=== PATIENT | female | born 1935 | race Caucasian/White ===

== ENCOUNTER 2019-03-09 17:21 | Inpatient (IN) | payer MEDICARE, MEDICAID ==
[~2019-03-09] VITALS: Ht 165.1 cm; Wt 67.6 kg
[~2019-03-09 17:21] MED LIST: CALC600T38 OR; CLOP75TA28 OR; GABA300C OR; GLYB5TAB8 OR; ISOSPOW2 XX; METO25TA62 OR; RALO60TA10 OR; RANI150C3 OR; SIMV80TA62 OR; [UNRECOGNIZED DRUG - OTHER]; [UNRECOGNIZED DRUG - OTHER]; [UNRECOGNIZED DRUG - OTHER]; ecotrin
[2019-03-09 17:53] LABS: Basophils # (auto) 0 uL; Basophils % (auto) 0.2 % (0.0-2.0); Eosinophils # (auto) 0 uL; Eosinophils % (auto) 0.1 % (0.0-7.0); Hematocrit 33.9 % (36.0-46.0); Hemoglobin 10.9 g/dL (12.2-16.2); Lymphocytes # (auto) 0.8 uL; Lymphocytes % (auto) 6.2 % (10.0-50.0); Mean Corpuscular Hemoglobin 28.5 pg (28.0-32.0); Mean Corpuscular Hgb Conc. 32.3 g/dL (32.0-36.0); Mean Corpuscular Volume 88.3 fL (80.0-100.0); Monocytes # (auto) 0.9 uL; Monocytes % (auto) 7.1 % (0.0-12.0); Neutrophils # (auto) 10.5 uL; Neutrophils % (auto) 86.4 % (37.0-80.0); Platelet Count (auto) 239 10^3/uL (140-450); Red Blood Cells 3.84 10^6/uL (4.0-5.20); Red Cell Distribution Width 14.7 % (11.8-14.3); White Blood Cell 12.2 10^3/uL (4.4-10.8)
[2019-03-09 18:14] LABS: Albumin 2.9 g/dL (3.4-5.0); Anion Gap 8 (5-15); Blood Urea Nitrogen 12 mg/dL (7-18); Calcium 8.4 mg/dL (8.5-10.1); Carbon Dioxide 27 mmol/L (21-32); Chloride 100 mmol/L (98-107); Glucose 209 mg/dL (74-106); Potassium 4.3 mmol/L (3.5-5.1); Sodium 135 mmol/L (136-145)
[2019-03-09 18:20] LABS: Alanine Aminotransferase 15 U/L (13-56); Alkaline Phosphatase 60 U/L (45-117); Aspartate Aminotransferase 12 U/L (15-37); BUN/Creatinine Ratio 12.5; Bilirubin, Total 0.5 mg/dL (0.2-1.0); GFR African American 72 mL/min; GFR Non-African American 59 mL/min; Total Protein 6.8 g/dL (6.4-8.2)
[2019-03-09] MEDS ORDERED: SODIUM CHLORIDE 0.9% 500 ML IV ONE (18:31)
[2019-03-09] MEDS ORDERED: InsuLIN REG 1unit/0.01ml Soln (100units/ml) SC ONE (18:45)
[2019-03-09] MEDS ORDERED: MORPHINE SULF INJ 2 MG/ML SYRINGE 1ML IV ONE (18:45)
[2019-03-09] MEDS ORDERED: ONDANSETRON HCL 4 MG/2 ML VIAL ONE (20:05)
[2019-03-09] MEDS ORDERED: ONDANSETRON HCL 4 MG/2 ML VIAL IV ONE (20:15)
[2019-03-09 21:29] LABS: Urine Bacteria MOD /hpf (None Seen); Urine Blood TRACE /uL (Negative); Urine Mucus FEW (None Seen); Urine Specific Gravity 1.015 (1.001-1.035); Urine WBC 534 /hpf (0 - 5); Urine WBC Clumps PRESENT /hpf (None Seen)
[2019-03-09] MEDS ORDERED: NITROFURANTOIN (MONO) 100 mg CAP PO ONE (22:00)
[2019-03-09] MEDS ORDERED: ONDANSETRON HCL 4 MG/2 ML VIAL IV PRN (23:15)
[2019-03-09] MEDS ORDERED: IBUPROFEN 600 MG TAB PO PRN (23:15)
[2019-03-09] MEDS ORDERED: DEXTROSE (50%) 50ML SYRG IV PRN (23:15)
[2019-03-10 00:20] VITALS: BP 136/63
--- NOTE | 2019-03-10 00:25 | NUR ---
MS admit from ER RACHANANATHAN admitted to [facility]. Patient oriented to Lola Gibson RN primary RN, unit, room, bed, and unit policies regarding patient care and visiting hours. Patient weighed by bedscale and encouraged to call if they need something. All questions and concerns addressed, patient verbalized understanding. Note: Patient confused, oriented to self, reoriented to place, time and situation. Patient follows direction. Patient on 2L via NC with even and unlabored respirations, no s/s of SOB or distress. Hypoactive bowel sounds, abd soft upon palpation, non-tender. Patient wearing diaper, soiled with urine, removed diaper, cleansed patient. IV intact and patent. patient was able to turn independently in bed. Bed low locked position with side rails up x 3 and call light within reach, bed alarm on. Will continue to monitor.
[2019-03-10] MEDS: IBUPROFEN 100MG/5ML ORAL SUSP 100 MG/5 ML UD PO PRN ×2 (01:15→09:51)
[2019-03-10] MEDS ORDERED: VANCOMYCIN PER PHARMACY 0 MG IV SCH (01:30)
[2019-03-10] MEDS ORDERED: VANCOMYCIN 1GM/250ML 250 ML IV ONE (03:00)
--- NOTE | 2019-03-10 05:45 | NUR ---
Spoke with Jeimy, patient's daughter for admission questions. Updated on patient's status and condition. All questions and concerns addressed.
[2019-03-10 05:59] VITALS: BP 127/63
[2019-03-10 05:59] LABS: Basophils # (auto) 0 uL; Basophils % (auto) 0.3 % (0.0-2.0); Eosinophils # (auto) 0 uL; Eosinophils % (auto) 0.1 % (0.0-7.0); Hematocrit 34.3 % (36.0-46.0); Hemoglobin 11.2 g/dL (12.2-16.2); Lymphocytes # (auto) 0.7 uL; Lymphocytes % (auto) 8.5 % (10.0-50.0); Mean Corpuscular Hgb Conc. 32.8 g/dL (32.0-36.0); Mean Corpuscular Volume 88.5 fL (80.0-100.0); Monocytes # (auto) 0.4 uL; Neutrophils # (auto) 6.7 uL; Neutrophils % (auto) 86.1 % (37.0-80.0); Nucleated Red Blood Cells % 0.1 %; Platelet Count (auto) 224 10^3/uL (140-450); Red Blood Cells 3.87 10^6/uL (4.0-5.20); Red Cell Distribution Width 14.5 % (11.8-14.3); White Blood Cell 7.8 10^3/uL (4.4-10.8)
[2019-03-10 06:08] LABS: BUN/Creatinine Ratio 12.6; Calcium 8.1 mg/dL (8.5-10.1); Potassium 3.6 mmol/L (3.5-5.1)
[2019-03-10] MEDS ORDERED: RANO500T PO (06:26)
[2019-03-10] MEDS ORDERED: OMEP20TA PO (06:26)
[2019-03-10] MEDS ORDERED: LISI2.5T47 PO (06:26)
[2019-03-10] MEDS ORDERED: MAGNTAB23 OR (06:26)
[2019-03-10] MEDS ORDERED: MULTCHW3 OR (06:26)
[2019-03-10] MEDS ORDERED: DONE10TA40 PO (06:26)
[2019-03-10] MEDS ORDERED: SERT-135 PO (06:26)
[2019-03-10] MEDS ORDERED: METF-371 PO (06:26)
[2019-03-10] MEDS ORDERED: APIX5TAB OR (06:26)
[2019-03-10] MEDS ORDERED: SITA100T7 PO (06:26)
[2019-03-10] MEDS ORDERED: ISOS10TA2 PO (06:26)
[2019-03-10] MEDS: InsuLIN REG 1unit/0.01ml Soln (100units/ml) SC SCH ×4 (06:49→22:24)
[2019-03-10] MEDS: ACCU-CHEK COMFORT CURVE STRIP VI SCH ×4 (06:49→22:24)
--- NOTE | 2019-03-10 07:00 | NUR ---
Closing Note patient awake resting in bed with oxygen on at 2L via NC, even and unlabored respirations, no s/s of distress or SOB. Patient turned independently in bed. patient acknowledges and follows directions well throughout shift. Bed low locked position with side rails up x 3 and call light within reach, bed alarm on. Endorsed care to day shift RN.
--- NOTE | 2019-03-10 08:00 | NUR ---
RECEIVED PT RESTING IN BED, CALL LIGHT WITHIN REACH, NO PAIN OR DISTRESS NOTED OR REPORTED, PT HAD AN INCONTINENT EPISODE OF URINE, PT WAS CLEAN AND DRY, BED ALARM ON, WILL CONTINUE TO MONITOR PT.
[2019-03-10 08:36] VITALS: BP 125/62
[2019-03-10] MEDS: CLOPIDOGREL BISULFATE 75 MG TAB PO SCH (08:56)
[2019-03-10] MEDS: cefTRIAXone 1GM/50ML D5W 50 ML IV SCH (08:56)
[2019-03-10] MEDS: PANTOPRAZOLE 40 MG TAB PO SCH (08:57)
[2019-03-10 12:28] VITALS: BP 120/63
[2019-03-10] MEDS ORDERED: TROLAMINE SALICYLATE 10% TOP CREAM TOP PRN (14:30)
--- NOTE | 2019-03-10 14:39 | NUR ---
DR. MOSER AT BED SIDE TO SEE PT.
[2019-03-10 17:14] VITALS: BP 92/61
--- NOTE | 2019-03-10 19:40 | NUR ---
Opening Shift Note Assumed care of patient, awake and alert, oriented x 3, re-oriented to time, follows directions. On oxygen at 2L via NC with even and unlabored respirations, no S/S of distress or SOB. IV intact and patent. Patient turns independently in bed. Bed low locked position with side rails up x 3 and call light within reach, bed alarm on. Instructed on POC and to call for assist PRN, will continue to monitor for changes Q1hr and PRN.
[2019-03-10 21:30] VITALS: BP 128/55
[2019-03-10] MEDS ORDERED: GABAPENTIN 300 MG CAP PO SCH (22:00)
[2019-03-10] MEDS ORDERED: METOPROLOL SUCCINATE XL 50 MG TAB PO SCH (22:00)
[2019-03-11 05:00] VITALS: BP 135/55
[2019-03-11 05:55] LABS: Basophils # (auto) 0 uL; Basophils % (auto) 0.2 % (0.0-2.0); Eosinophils # (auto) 0 uL; Eosinophils % (auto) 0.4 % (0.0-7.0); Hematocrit 33.8 % (36.0-46.0); Hemoglobin 11.3 g/dL (12.2-16.2); Lymphocytes # (auto) 0.5 uL; Lymphocytes % (auto) 7.3 % (10.0-50.0); Mean Corpuscular Hemoglobin 29.3 pg (28.0-32.0); Mean Corpuscular Hgb Conc. 33.4 g/dL (32.0-36.0); Mean Corpuscular Volume 87.7 fL (80.0-100.0); Monocytes # (auto) 0.6 uL; Monocytes % (auto) 7.8 % (0.0-12.0); Neutrophils # (auto) 6.1 uL; Neutrophils % (auto) 84.3 % (37.0-80.0); Platelet Count (auto) 220 10^3/uL (140-450); Red Blood Cells 3.85 10^6/uL (4.0-5.20); Red Cell Distribution Width 14.4 % (11.8-14.3); White Blood Cell 7.2 10^3/uL (4.4-10.8)
[2019-03-11 06:29] LABS: BUN/Creatinine Ratio 12.3; Calcium 8.2 mg/dL (8.5-10.1); Potassium 3.6 mmol/L (3.5-5.1)
[2019-03-11] MEDS: InsuLIN REG 1unit/0.01ml Soln (100units/ml) SC SCH ×3 (06:38→17:51)
[2019-03-11] MEDS: ACCU-CHEK COMFORT CURVE STRIP VI SCH ×3 (06:38→17:51)
--- NOTE | 2019-03-11 07:05 | NUR ---
Closing Note patient awake resting in bed with even and unlabored respirations, no s/s of distress or SOB. Patient turned independently in bed. patient ambulated with minimal assistance to bathroom throughout shift. patient acknowledges and follows directions well throughout shift. Bed low locked position with side rails up x 3 and call light within reach, bed alarm on. Endorsed care to day shift RN.
[2019-03-11 08:15] VITALS: BP 120/59
[2019-03-11 08:28] VITALS: BP 120/59
[2019-03-11] MEDS: cefTRIAXone 1GM/50ML D5W 50 ML IV SCH (09:20)
[2019-03-11] MEDS: PANTOPRAZOLE 40 MG TAB PO SCH (09:30)
[2019-03-11] MEDS: CLOPIDOGREL BISULFATE 75 MG TAB PO SCH (09:34)
--- NOTE | 2019-03-11 11:30 | NUR ---
Episode of incontinence Patient assisted with pericare. Linens and gown changed. Pt tolerates care well.
[2019-03-11 11:36] VITALS: BP 120/60
--- NOTE | 2019-03-11 13:14 | NUR ---
OPENING NOTE Received report on patient. Pt is in bed A&Ox3. Disoriented to time. No signs/symptoms of pain or discomfort. Pt assisted with pericare d/t episode of incontinence. Call ramires is within reach, bed is in low locked position. Patient informed on POC and verbalizes understanding.
[2019-03-11 16:27] VITALS: BP 120/60
[2019-03-11 16:54] VITALS: BP 126/76
--- NOTE | 2019-03-11 18:49 | NUR ---
DISCHARGED PATIENT DISCHARGED HOME VIA WHEELCHAIR TO PRIVATE FAMILY VEHICLE AFTER ALL DISCHARGE INSTRUCTIONS GIVEN. PER KHARI PATIENTS DAUGHTER PATIENTS PCP IS DR HARPER WITH [facility]. HAS APPOINTMENT IN X3 WEEKS. THIS RN INSTRUCTED FAMILY TO CALL FOR APPOINTMENT WITHIN 1-2 WEEKS FOR HOSPITAL FOLLOW UP. FAMILY VERBALIZED UNDERSTANDING. PATIENT SHOWED NO S/S OF DISTRESS OR SOB NOTED UPON DISCHARGE. IV WAS REMOVED USING CLEAN STERILE TECHNIQUE, CATHETER WAS INTACT UPON REMOVAL. PRESSURE DRESSING APPLIED.
== END 2019-03-11 18:58 | disposition home or self-care (01) | DRG 871 ==
LOC: EDBD 17:21 → ER 17:26 → OVERFLOW 22:01 → WEST WING 23:55
PROVIDERS: ADMIT Nurse Practitioner Family; ATTEND Internal Medicine
DX: A41.9 Sepsis, unspecified organism (principal); G92 Toxic encephalopathy; N17.0 Acute kidney failure with tubular necrosis; N12 Tubulo-interstitial nephritis, not specified as acute or chronic; E87.1 Hypo-osmolality and hyponatremia; E44.0 Moderate protein-calorie malnutrition; J98.11 Atelectasis; R55 Syncope and collapse; N18.9 Chronic kidney disease, unspecified; I13.10 Hypertensive heart and chronic kidney disease without heart failure, with stage 1 through stage 4 chronic kidney disease, or unspecified chronic kidney disease; E11.22 Type 2 diabetes mellitus with diabetic chronic kidney disease; E11.21 Type 2 diabetes mellitus with diabetic nephropathy; M19.90 Unspecified osteoarthritis, unspecified site; W18.39XA Other fall on same level, initial encounter; G89.29 Other chronic pain; K21.9 Gastro-esophageal reflux disease without esophagitis; S76.019A Strain of muscle, fascia and tendon of unspecified hip, initial encounter; Y93.89 Activity, other specified; Y92.89 Other specified places as the place of occurrence of the external cause; Z68.24 Body mass index [BMI] 24.0-24.9, adult; Z88.1 Allergy status to other antibiotic agents; Z88.5 Allergy status to narcotic agent; Z88.2 Allergy status to sulfonamides; Z88.8 Allergy status to other drugs, medicaments and biological substances; Y99.8 Other external cause status; Z79.84 Long term (current) use of oral hypoglycemic drugs; Z95.1 Presence of aortocoronary bypass graft
CPT/HCPCS: 36415; 51702; 70450; 71045; 72100; 73502; 80048; 80053; 81001; 82962; 83036; 83880; 84484; 85025; 87086; 87088; 87186; 93005; 94761; 96365; 96367; 96372; 96375; G0378; J0696; J1815; J2405